=== PATIENT | female | born 1990 | race Caucasian/White ===

== ENCOUNTER 2016-08-30 19:49 | Emergency (ER) | payer OTHER ==
[~2016-08-30] VITALS: Ht 154.9 cm; Wt 115.6 kg
[2016-08-30 21:10] VITALS: Ht 154.9 cm; Wt 115.6 kg
[2016-08-30] MEDS ORDERED: AMO500 PO (22:42)
[2016-08-30] MEDS ORDERED: IBUP-1542 PO (22:42)
[2016-08-30] MEDS ORDERED: CETI10CA PO (22:42)
[2016-08-30] MEDS ORDERED: GUAI120S26 PO (22:42)
--- NOTE | 2016-08-30 22:44 | ERD ---
ER Documentation Chief Complaint Date/Time DATE: 08/30/16 TIME: 22:38 Chief Complaint FEVER AND LT EAR PAIN 3O MINS AGO HPI 25-year-old female presents here in emergency department for multiple complaints. Patient's complaining of cough, runny nose, and nasal congestion on and off fever started yesterday. Tonight, started to have left ear pain, throbbing pain, 6/10 scale, accompanying the other symptoms. Patient denies any problems with hearing. Patient denies any trauma in the ear. Patient denies any ear discharge. ROS All systems reviewed and are negative except as per history of present illness. Medications Home Meds Active Scripts Cetirizine Hcl* (Zyrtec*) 10 Mg Capsule, 10 MG PO DAILY, #30 TAB.CHEW Prov:YUMIKO METZ FINANCE PROFESSOR 08/30/16 Tiwqiaqoxbx-O-Eliqucyfpl Hb* (Guaifenesin* DM Syrup) 120 Ml Syrup, 10 ML PO Q4H Y for COUGH, #120 ML Prov:YUMIKO METZ NP 08/30/16 Amoxicillin* (Amoxicillin*) 500 Mg Cap, 500 MG PO TID for 10 Days, CAP Prov:YUMIKO METZ FINANCE PROFESSOR 08/30/16 Ibuprofen* (Motrin*) 600 Mg Tab, 600 MG PO Q6H Y for PAIN AND OR ELEVATED TEMP, #30 TAB Prov:YUMIKO METZ NP 08/30/16 Allergies Allergies: Coded Allergies: No Known Allergy (Unverified , 08/30/16) PMhx/Soc History of Surgery: Yes (heart valve replacement 2006) Hx Cardiac Disorders: Yes (heart valve replacement) Hx Alcohol Use: No Hx Substance Use: No Hx Tobacco Use: No Smoking Status: Never smoker Physical Exam Vitals Vital Signs Date Time Temp Pulse Resp B/P Pulse Ox O2 Delivery O2 Flow Rate FiO2 08/30/16 21:10 100.5 118 20 126/74 95 Physical Exam GENERAL: The patient is well developed and appropriate for usual state of health, in no apparent distress. HEENT: Atraumatic. Ears: Left ear tympanic membrane is noted to be erythematous and bulging. Normal right tympanic membrane, no erythema or bulging. No ear canal swelling. No ear discharge. Nose: Erythematous nasal turbinates with clear nasal discharge. Throat: oropharynx erythematous with postnasal drip. No tonsillar swelling or tonsillar exudates. No lymphadenopathy. CHEST: Clear to auscultation bilaterally. There are no rales, wheezes or rhonchi. HEART: Regular rate and rhythm. No murmurs, clicks, rubs or gallops. No S3 or S4. ABDOMEN: Soft, nontender and nondistended. Good bowel sounds. No rebound or guarding. No gross peritonitis. No gross organomegaly or masses. No Gutierrez sign or McBurney point tenderness. BACK: No midline or flank tenderness. EXTREMITIES: Equal pulses bilaterally. There is no peripheral clubbing, cyanosis or edema. No focal swelling or erythema. Full range of motion. Grossly neurovascularly intact. NEURO: Alert and oriented. Cranial nerves 2-12 intact. Motor strength in all 4 extremities with 5/5 strength. Sensation grossly intact. Normal speech and gait. SKIN: There is no apparent rash or petechia. The skin is warm and dry. HEMATOLOGIC AND LYMPHATIC: There is no evidence of excessive bruising or lymphedema. No gross cervical, axillary, or inguinal lymphadenopathy. Results 24 hrs Current Medications Medications (Trade) Dose Ordered Sig/Ana Route PRN Reason Start Time Stop Time Status Last Admin Dose Admin Acetaminophen (Tylenol Tab) 650 mg ONCE ONCE PO 08/30/16 23:00 08/30/16 23:01 DC 08/30/16 23:02 Ibuprofen (Motrin) 600 mg ONCE ONCE PO 08/30/16 23:00 08/30/16 23:01 DC 08/30/16 23:02 Patient was given medicines for fever control here in the emergency department. After treatment, patient temperature improved and lower. Patient appears well and is hemodynamically stable. Procedures/MDM Medical decision making: Patient's left ear pain consistent with otitis media. No symptoms of otitis externa or mastoiditis. No foreign body in the ear. No tympanic membrane perforation noted. Patient other symptoms are most likely consistent with upper respiratory tract infection, which viral in origin. There is low suspicion for Pneumonia at this time since patients lungs sounds are clear, patient O2 saturation is normal and patient doesnt show any respiratory distress. Radiology exams not indicated at this time. There is low suspicion for other cardiopulmonary emergencies at this time such as CHF, Pulmonary Embolism, Pneumothorax, Aortic Aneurysm or any other cardiopulmonary emergencies at this time. There is low suspicion for sepsis. Patient appears well and is hemodynamically stable. Fever is controlled with medicines. Disposition: Home. Condition: Stable Prescriptions: Amoxicillin and ibuprofen and guaifenesin DM Zyrtec Instructions: Patient is advised to take medications as prescribed. Patient is advised to rest. Patient advised to increase fluid intake, do humidifier at home and if possible, do salt water gargles. Patient is advised that if symptoms are worse, shortness of breath, uncontrolled fever, stridor, vomiting, worst signs and symptoms to return to emergency department immediately. Otherwise, patient is advised to follow up with primary doctor in 5-7 days. Departure Diagnosis: Primary Impression: Left otitis media Otitis media type: serous Chronicity: acute Recurrence: not specified as recurrent Qualified Code: H65.02 - Acute serous otitis media of left ear, recurrence not specified Additional Impression: URI (upper respiratory infection) URI type: unspecified viral URI Qualified Code: J06.9 - Viral upper respiratory tract infection Condition: Stable YUMIKO METZ NP Aug 30, 2016 22:44
[2016-08-30] MEDS ORDERED: IBUPROFEN 600 MG TAB PO ONE (23:00)
[2016-08-30] MEDS ORDERED: ACETAMINOPHEN 325 MG TAB PO ONE (23:00)
== END 2016-08-30 23:24 | disposition home or self-care (01) ==
LOC: FTE 19:49
DX: H65.02 Acute serous otitis media, left ear (principal); J06.9 Acute upper respiratory infection, unspecified
CPT/HCPCS: Z7502; Z7610; 99283

== ENCOUNTER 2017-01-21 18:46 | Emergency (ER) | payer OTHER ==
[~2017-01-21] VITALS: Ht 157.5 cm; Wt 116.5 kg
[~2017-01-21 18:46] MED LIST: AMO500 PO; CETI10CA PO; GUAI120S26 PO; IBUP-1542 PO
[2017-01-21 19:08] VITALS: Ht 157.5 cm; Wt 116.5 kg
[2017-01-21] MEDS ORDERED: LEVO25TA53 PO (22:10)
[2017-01-21] MEDS ORDERED: [UNRECOGNIZED DRUG - OTHER] PO (22:14)
--- NOTE | 2017-01-21 22:22 | ERA ---
ER Documentation Chief Complaint Date/Time DATE: 01/21/17 TIME: 22:21 Chief Complaint chest pain w/ sob x 1 month w/ htn, hx- sp heart surgery 10 yrs ago- HPI The patient is a 26-year-old female, presenting to the ER because of chronic chest pain or shortness of breath after she had her pulmonary valve replaced on a 11 years ago, however the symptom is worse for the last month. She recently came back from [place] about 3 days ago. She denies fever, chills, neck pain, chest pain with exertion or vomiting or diaphoresis, pleuritic chest pain. She denies abdominal pain, vomiting, dysuria, diarrhea, constipation. She does not smoke or drink Past medical history: Hypothyroidism, anemia Past surgical history: Pulmonary valve replacement ROS All systems reviewed and are negative except as per history of present illness. Medications Home Meds Reported Medications [Iron Bisgly 25MG] No Conflict Check, 1 TAB PO DAILY 01/21/17 Levothyroxine Sodium* (Levothyroxine Sodium*) 25 Mcg Tablet, 25 MCG PO BEFORE BREAKFAST, #30 TAB 01/21/17 Discontinued Scripts Cetirizine Hcl* (Zyrtec*) 10 Mg Capsule, 10 MG PO DAILY, #30 TAB.CHEW Prov:YUMIKO METZ NP 08/30/16 Rljgzzvmhve-Q-Kfsyaomyon Hb* (Guaifenesin* DM Syrup) 120 Ml Syrup, 10 ML PO Q4H Y for COUGH, #120 ML Prov:YUMIKO METZ NP 08/30/16 Amoxicillin* (Amoxicillin*) 500 Mg Cap, 500 MG PO TID for 10 Days, CAP Prov:YUMIKO METZ NP 08/30/16 Ibuprofen* (Motrin*) 600 Mg Tab, 600 MG PO Q6H Y for PAIN AND OR ELEVATED TEMP, #30 TAB Prov:YUMIKO METZ NP 08/30/16 Allergies Allergies: Coded Allergies: No Known Allergy (Unverified , 01/21/17) PMhx/Soc History of Surgery: Yes (heart valve replacement 2006) Hx Cardiac Disorders: Yes (heart valve replacement) Hx Psychiatric Problems: No Hx Miscellaneous Medical Probl: No Hx Alcohol Use: No Hx Substance Use: No Hx Tobacco Use: No Smoking Status: Never smoker Physical Exam Vitals Vital Signs Date Time Temp Pulse Resp B/P Pulse Ox O2 Delivery O2 Flow Rate FiO2 01/22/17 00:41 72 20 169/95 98 01/21/17 22:55 77 20 169/87 98 01/21/17 19:08 97.8 87 20 191/91 98 Physical Exam Const: No acute distress. Head: Atraumatic. Eyes: Normal Conjunctiva. ENT: Normal External Ears, Nose and Mouth. Neck: Full range of motion. No meningismus. Resp: Clear to auscultation bilaterally. Cardio: Regular rate and rhythm. Abd: Soft, non distended, normal bowel sounds, non tender. Skin: No petechiae or rashes. Back: No midline or flank tenderness. Ext: No cyanosis, or edema. Neur: Awake and alert. No focal deficit Psych: Normal Mood and Affect. Result Diagram: 01/21/17219901/21/172199 Results 24 hrs Laboratory Tests Test 01/21/17 21:46 01/21/17 22:00 Serum HCG, Qualitative NEGATIVE White Blood Count 9.410^3/ul Red Blood Count 4.7910^6/ul Hemoglobin 13.8g/dl Hematocrit 41.2% Mean Corpuscular Volume 86.0fl Mean Corpuscular Hemoglobin 28.8pg Mean Corpuscular Hemoglobin Concent 33.5g/dl Red Cell Distribution Width 12.2% Platelet Count 57353^3/UL Mean Platelet Volume 11.6fl Neutrophils % 53.5% Lymphocytes % 34.1% Monocytes % 9.0% Eosinophils % 2.8% Basophils % 0.3% Nucleated Red Blood Cells % 0.0/100WBC Neutrophils # 5.010^3/ul Lymphocytes # 3.210^3/ul Monocytes # 0.810^3/ul Eosinophils # 0.310^3/ul Basophils # 0.010^3/ul Nucleated Red Blood Cells # 0.010^3/ul Prothrombin Time 12.5Sec Prothrombin Time Ratio 1.0 INR International Normalized Ratio 0.93 Activated Partial Thromboplast Time 29.2Sec D-Dimer 359.30ng/ml D-Dimer Comment Sodium Level 145mmol/L Potassium Level 4.1mmol/L Chloride Level 104mmol/L Carbon Dioxide Level 24mmol/L Anion Gap 21 Blood Urea Nitrogen 13mg/dl Creatinine 0.74mg/dl Glucose Level 89mg/dl Calcium Level 9.4mg/dl Troponin I < 0.012ng/ml B-Type Natriuretic Peptide 98PG/ML Procedures/[place] [id number] Radiology Main Line: [phone] DIAGNOSTIC IMAGING REPORT Patient: AMMY HALL : 1990 Age: 26 Sex: F MR #: [id number] DOS: 01/21/17 2250 Ordering MD: YVONNE TALAVERA MD Location: E/R Room/Bed: PROCEDURE: XR Chest. CLINICAL INDICATION: Dyspnea. TECHNIQUE: Single frontal view of the chest. COMPARISON: None. FINDINGS: The cardiomediastinal silhouette is within normal limits. Pulmonary vascular markings are accentuated by patient body habitus and portable technique. The lungs are clear. No signs of pleural fluid or pneumothorax are seen. The osseous structures and soft tissues are unremarkable. IMPRESSION: No evidence for active cardiopulmonary disease. RPTAT: UU. Physician Ap Date Time Electronically viewed and signed by Physician Ap on 01/21/2017 23:26 RS/ CC: YVONNE TALAVERA MD EKG: Read by emergency physician Rate/Rhythm: Normal Sinus Rhythm 83 beats/min QRS, ST, T-waves: No ST elevation, no T inversion Impression: Normal EKG MEDICAL MAKING DECISION: The patient is a 26-year-old female, presenting with chronic dyspnea and chronic chest of unclear etiology. She is stable for outpatient follow-up The differential diagnoses considered include but are not limited to asthma, COPD, pneumonia, pulmonary embolus, pleural effusion, congestive heart failure. Departure Diagnosis: Primary Impression: Dyspnea Additional Impression: Chest pain Condition: Good Comments I discussed the findings with the patient. I advised the patient to follow-up with the primary physician in about 1-2 days, sooner if needed and return if any concern. The patient's blood pressure was elevated (>120/80) but appears stable without evidence of hypertension emergency or urgency. The patient was counseled about the risks of hypertension and urged to pursue outpatient monitoring and therapy within a week with their primary care physician. YVONNE TALAVERA MD Jan 21, 2017 22:22
[2017-01-21 23:04] LABS: BASOPHILS % 0.3 % (0.0-2.0); EOSINOPHILS # 0.3 10^3/ul (0.0-0.5); EOSINOPHILS % 2.8 % (0.0-7.0); HEMATOCRIT 41.2 % (37.0-47.0); HEMOGLOBIN 13.8 g/dl (12.0-16.0); LYMPHOCYTES # 3.2 10^3/ul (0.8-2.9); LYMPHOCYTES % 34.1 % (15.0-51.0); MEAN CORPUSCULAR HEMOGLOBIN 28.8 pg (29.0-33.0); MEAN CORPUSCULAR HGB CONC 33.5 g/dl (32.0-37.0); MEAN PLATELET VOLUME 11.6 fl (7.4-10.4); MONOCYTE # 0.8 10^3/ul (0.3-0.9); NEUTROPHILS % 53.5 % (39.0-77.0); PLATELET COUNT 265 10^3/UL (140-415); RED BLOOD COUNT 4.79 10^6/ul (4.20-5.40); RED CELL DISTRIBUTION WIDTH 12.2 % (11.5-14.5); WHITE BLOOD COUNT 9.4 10^3/ul (4.8-10.8)
[2017-01-21 23:09] LABS: INR 0.93; PROTIME 12.5 Sec (12.2-14.2)
[2017-01-21 23:10] LABS: PARTIAL THROMBOPLASTIN TIME 29.2 Sec (25.0-35.0)
[2017-01-21 23:12] LABS: D-DIMER 359.3 ng/ml (<460)
[2017-01-21 23:15] LABS: ANION GAP 21 (8-16); BLOOD UREA NITROGEN 13 mg/dl (7-20); CALCIUM 9.4 mg/dl (8.4-10.2); CARBON DIOXIDE 24 mmol/L (21-31); CHLORIDE 104 mmol/L (97-110); CREATININE 0.74 mg/dl (0.44-1.00); GLUCOSE 89 mg/dl (70-220); POTASSIUM 4.1 mmol/L (3.5-5.1); SODIUM 145 mmol/L (135-144)
[2017-01-21 23:27] LABS: B-TYPE NATRIURETIC PEPTIDE 98 PG/ML (0-125)
--- NOTE | 2017-01-21 23:27 | RADRPT ---
PROCEDURE: XR Chest. CLINICAL INDICATION: Dyspnea. TECHNIQUE: Single frontal view of the chest. COMPARISON: None. FINDINGS: The cardiomediastinal silhouette is within normal limits. Pulmonary vascular markings are accentuate d by patient body habitus and portable technique. The lungs are clear. No signs of pleural fluid or pneumothorax are seen. The osseous structures and soft tissues are unremarkable. IMPRESSION: No evidence for active cardiopulmonary disease. RPTAT: UU. Physician Ap Date Time Electronically viewed and signed by Physician Ap on 01/21/2017 23:26 RS/
[2017-01-21 23:28] LABS: TROPONIN-I < 0.012 ng/ml (0.00-0.12)
[2017-01-22 00:41] VITALS: BP 169/95; PULSE 72; RESP 20
== END 2017-01-22 00:42 | disposition home or self-care (01) ==
LOC: E/R 18:46
DX: R06.00 Dyspnea, unspecified (principal); E03.9 Hypothyroidism, unspecified; I10 Essential (primary) hypertension; R06.02 Shortness of breath
CPT/HCPCS: 36415; 71010; 80048; 83880; 84484; 84703; 85025; 85378; 85610; 85730; 93005; Z7502